=== PATIENT | female | born 1940 | race Caucasian/White ===

== ENCOUNTER 2016-06-01 10:59 | Outpatient (CLI) | payer MEDICARE, OTHER | END 2016-06-01 11:00 | disposition home or self-care (01) | DX: Z12.31 Encounter for screening mammogram for malignant neoplasm of breast (principal) ==

== ENCOUNTER 2016-06-03 15:30 | Outpatient (CLI) | END 2016-06-03 15:31 | disposition home or self-care (01) ==

== ENCOUNTER 2016-06-14 08:40 | Outpatient (CLI) | payer MEDICARE, OTHER | END 2016-06-14 08:41 | disposition home or self-care (01) | DX: R30.0 Dysuria (principal) ==

== ENCOUNTER 2016-06-22 14:42 | Outpatient (CLI) | payer MEDICARE, OTHER | END 2016-06-22 14:43 | disposition home or self-care (01) | DX: R31.9 Hematuria, unspecified (principal) ==

== ENCOUNTER 2016-12-28 09:00 | Outpatient (CLI) | payer MEDICARE, OTHER ==
[2016-12-28 13:17] LABS: BASOPHILS % (AUTO) 0.5 %; EOSINOPHILS # (AUTO) 0.1 10^3/uL (0.0-0.7); EOSINOPHILS % (AUTO) 1.3 %; HCT - HEMATOCRIT 40.7 % (37.0-47.0); HGB - HEMOGLOBIN 13.5 g/dL (12.0-16.0); LYMPHOCYTES # (AUTO) 2.5 10^3/uL (1.5-3.5); LYMPHOCYTES % (AUTO) 34.9 %; MEAN CORPUSCULAR HEMOGLOBIN 28.8 pg (27.0-31.0); MEAN CORPUSCULAR HGB CONC 33.2 g/dL (32.0-36.0); MEAN CORPUSCULAR VOLUME 86.9 fL (81.0-99.0); MONOCYTES # (AUTO) 0.4 10^3/uL (0.0-1.0); MONOCYTES % (AUTO) 6.1 %; NEUTROPHILS # (AUTO) 4.1 10^3/uL (1.5-6.6); NEUTROPHILS % (AUTO) 57.2 %; NUCLEATED RED BLOOD CELLS AUTO 0.1 /100WBC; RED BLOOD COUNT 4.69 10^6/uL (4.20-5.40); RED CELL DISTRIBUTION WIDTH 13.3 % (12.0-15.0); UNCORRECTED WHITE BLOOD COUNT 7.1 x10^3/uL; WHITE BLOOD COUNT 7.1 x10^3/uL (4.8-10.8)
[2016-12-28 13:26] LABS: H. PYLORI IGG ANTIBODY Negative (Negative); HPYLORI NEG QC Negative (Negative); HPYLORI POS QC POSITIVE (Positive)
[2016-12-28 13:39] LABS: ALBUMIN/GLOBULIN RATIO 1.5 (1.0-2.2); BILIRUBIN,TOTAL 0.9 mg/dL (0.2-1.0); CALCIUM 9.6 mg/dL (8.5-10.3); CREATININE 0.9 mg/dL (0.4-1.0); POTASSIUM 3.7 mmol/L (3.5-5.0); TOTAL PROTEIN 7.2 g/dL (6.7-8.2)
== END 2016-12-28 09:01 | disposition home or self-care (01) ==
LOC: LAB.WCP 09:00
PROVIDERS: ATTEND Physician Assistant Medical
DX: R10.13 Epigastric pain (principal)
CPT/HCPCS: 36415; 80053; 83690; 85025; 87086; 87339

== ENCOUNTER 2017-01-03 10:08 | Outpatient (CLI) | payer MEDICARE, OTHER ==
[2017-01-03] MEDS ORDERED: IOPAMIDOL-300 100 ML VIAL IVP ONE (12:35)
[2017-01-03] MEDS ORDERED: IOPAMIDOL-300 50 ML VIAL PO ONE (12:35)
--- NOTE | 2017-01-03 16:13 | CT Report ---
CT OF THE ABDOMEN AND PELVIS WITH CONTRAST: 01/03/2017 CLINICAL INDICATION: Epigastric pain. TECHNIQUE: Axial CT images of the abdomen and pelvis were obtained following 100 mL of Isovue-300 int ravenously as well as oral contrast. COMPARISON: 07/11/2014. FINDINGS: Limited evaluation of the lung bases demonstrates atelectasis. ABDOMEN: There is a stable cyst in the right lobe of the liver. The spleen, pancreas, kidneys and adr enal glands are unremarkable. The gallbladder is not dilated. No bowel dilatation, free gas, or free fluid is present. No abdominal adenopathy is seen. PELVIS: Sigmoid diverticulosis is present, without CT evidence of diverticulitis. No pelvic adenopath y or free fluid is present. The osseous structures demonstrate degenerative changes. IMPRESSION: DIVERTICULOSIS, WITHOUT CT EVIDENCE OF DIVERTICULITIS. INCIDENTAL HEPATIC CYST. NO EVIDE NT ETIOLOGY FOR PATIENT'S EPIGASTRIC PAIN. In accordance with CT protocol optimization, one or more of the following dose reduction techniques w ere utilized for this exam: automated exposure control, adjustment of mA and/or KV based on patient size, or use of iterative reconstructive technique. JOB #: [id number] EXT JOB #:[id number]
== END 2017-01-03 10:09 | disposition home or self-care (01) ==
LOC: LAB 10:08
PROVIDERS: ATTEND Physician Assistant Medical
DX: R10.13 Epigastric pain (principal); K57.30 Diverticulosis of large intestine without perforation or abscess without bleeding
CPT/HCPCS: 74177; Q9967

== ENCOUNTER 2017-01-24 09:45 | Outpatient (CLI) | payer MEDICARE, OTHER | END 2017-01-24 09:46 | disposition home or self-care (01) | LOC: LAB.WCP 09:45 | PROVIDERS: ATTEND Physician Assistant Medical | DX: R31.9 Hematuria, unspecified (principal) | CPT/HCPCS: 87086 ==

== ENCOUNTER 2018-04-21 13:11 | Outpatient (CLI) | payer MEDICARE, OTHER | END 2018-04-21 13:12 | disposition critical access hospital (66) | LOC: EMS 13:11 | PROVIDERS: ATTEND Surgery | DX: R42 Dizziness and giddiness (principal); R53.1 Weakness | CPT/HCPCS: A0425; A0429 ==

== ENCOUNTER 2018-04-21 13:37 | Emergency (ER) | payer MEDICARE, OTHER ==
[2018-04-21 14:27] LABS: BILIRUBIN,URINE NEGATIVE (NEGATIVE); GLUCOSE, URINE (UA) NEGATIVE (NEGATIVE); KETONES,URINE (UA) NEGATIVE (NEGATIVE); LEUKOCYTE ESTERASE, URINE SMALL (NEGATIVE); NITRITE,URINE NEGATIVE (NEGATIVE); OCCULT BLOOD,URINE NEGATIVE (NEGATIVE); PROTEIN,URINE NEGATIVE (NEGATIVE); UROBILINOGEN,URINE 0.2 (NORMAL) E.U./dL (NORMAL)
[2018-04-21 14:29] LABS: CLARITY,URINE CLEAR (CLEAR)
[2018-04-21 14:42] LABS: BACTERIA,URINE Rare /HPF (None Seen); RBC,URINE 0-5 /HPF (0-5); SQUAMOUS EPITHELIAL CELL,UR RARE Squamous (<= Few)
[2018-04-21 14:44] LABS: BASOPHILS # (AUTO) 0.1 10^3/uL (0.0-0.1); BASOPHILS % (AUTO) 0.5 %; EOSINOPHILS # (AUTO) 0.2 10^3/uL (0.0-0.7); EOSINOPHILS % (AUTO) 1.4 %; HGB - HEMOGLOBIN 13.4 g/dL (12.0-16.0); LYMPHOCYTES # (AUTO) 1.8 10^3/uL (1.5-3.5); LYMPHOCYTES % (AUTO) 15.4 %; MEAN CORPUSCULAR HEMOGLOBIN 29.4 pg (27.0-31.0); MEAN CORPUSCULAR HGB CONC 33.9 g/dL (32.0-36.0); MEAN CORPUSCULAR VOLUME 86.8 fL (81.0-99.0); MEAN PLATELET VOLUME 9.3 fL (7.9-10.8); MONOCYTES # (AUTO) 0.5 10^3/uL (0.0-1.0); MONOCYTES % (AUTO) 4.8 %; NEUTROPHILS # (AUTO) 8.8 10^3/uL (1.5-6.6); NEUTROPHILS % (AUTO) 77.9 %; PLT - PLATELET COUNT 250 10^3/uL (130-450); RED BLOOD COUNT 4.54 10^6/uL (4.20-5.40); RED CELL DISTRIBUTION WIDTH 13.2 % (12.0-15.0); WHITE BLOOD COUNT 11.3 x10^3/uL (4.8-10.8)
[2018-04-21 14:53] LABS: ALBUMIN 4.5 g/dL (3.2-5.5); ALBUMIN/GLOBULIN RATIO 1.6 (1.0-2.2); BILIRUBIN,TOTAL 0.8 mg/dL (0.2-1.0); CALCIUM 9.4 mg/dL (8.5-10.3); CREATININE 1.7 mg/dL (0.4-1.0); TOTAL PROTEIN 7.4 g/dL (6.7-8.2)
[2018-04-21] MEDS ORDERED: POTASSIUM CHLOR 10 MEQ/100 ML 10 MEQ/100 ML BAG IV ONE (15:46)
[2018-04-21] MEDS ORDERED: NITROFURANTOIN MACRO 100 MG CAPSULE PO STA (15:46)
[2018-04-21 17:15] VITALS: BP 117/56
--- NOTE | 2018-04-21 17:51 | ED Physician Documentation ---
History of Present Illness - Stated complaint Stated Complaint: WEAK - Chief complaint Chief Complaint: General - History obtained from History obtained from: Patient, Family (daughter) - Additonal information Additional information: The patient is a 77-year-old female with history of dementia who arrives via ambulance after her daughter became concerned about generalized weakness. The patient has no complaints at this time, and is uncertain why she was brought to the emergency department. Her daughter reports that she sounded drowsy when talking on the phone this morning. When the daughter went to check on her, the patient was so weak she could barely get up from the couch. Review of Systems Unable to obtain: Dementia Constitutional: denies: Fever Cardiac: denies: Chest pain / pressure Respiratory: denies: Dyspnea GI: denies: Abdominal Pain, Nausea, Vomiting : denies: Dysuria Skin: denies: Rash Musculoskeletal: denies: Neck pain, Back pain, Extremity pain Neurologic: reports: Generalized weakness. denies: Focal weakness, Numbness, Headache PD PAST MEDICAL HISTORY - Past Medical History Past Medical History: No Cardiovascular: Hypertension Respiratory: None Neuro: Dementia Endocrine/Autoimmune: None GI: None TECHNICAL SALES SUPPORT SPECIALIST: None : None HEENT: None Psych: None Musculoskeletal: None Derm: None - Past Surgical History Past Surgical History: Yes /TECHNICAL SALES SUPPORT SPECIALIST: section, Hysterectomy - Present Medications Home Medications: Ambulatory Orders Medication Instructions Recorded Confirmed Nitrofurantoin [Macrobid] 100 mg PO BID #10 capsule 04/21/18 Potassium Chloride [K-Dur] 20 meq PO 0800 #20 tablet 04/21/18 Triamterene/Hydrochlorothiazid 1 tab ORAL DAILY 04/21/18 04/21/18 [Maxzide 37.5 mg-25 mg Tablet] - Allergies Allergies/Adverse Reactions: Allergies Allergy/AdvReac Type Severity Reaction Status Date / Time No Known Drug Allergies Allergy Verified 04/01/16 10:42 - Social History Does the pt smoke?: No Smoking Status: Never smoker Does the pt drink ETOH?: No Does the pt have substance abuse?: No - Immunizations Immunizations are current?: Yes - POLST Patient has POLST: No PD ED PE NORMAL - Vitals Vital signs reviewed: Yes (normal) - General General: No acute distress, Well developed/nourished, Other (Alert, disoriented to date, conversant, but with poor memory.) - HEENT HEENT: Atraumatic, EOMI, Moist mucous membranes, Pharynx benign - Neck Neck: Supple, no meningeal sign, No adenopathy, No JVD - Cardiac Cardiac: RRR - Respiratory Respiratory: No respiratory distress, Clear bilaterally - Abdomen Abdomen: Soft, Non tender - Back Back: No CVA TTP - Derm Derm: No rash - Extremities Extremities: No edema, No calf tenderness / cord - Neuro Neuro: No motor deficit, No sensory deficit, Normal speech, Other (Alert, oriented 2.) Eye Opening: Spontaneous Motor: Obeys Commands Verbal: Confused GCS Score: 14 Results - Vitals Vitals: Oxygen O2 Source Room air - Labs Labs: Microbiology 04/21/18 14:23 Urine Culture - Final Urine,Random Viridans Streptococcus Group Laboratory Tests 04/21/18 04/21/18 04/21/18 14:23 14:29 14:29 WBC 11.3 H RBC 4.54 Hgb 13.4 Hct 39.4 MCV 86.8 MCH 29.4 MCHC 33.9 RDW 13.2 Plt Count 250 MPV 9.3 Neut # (Auto) 8.8 H Lymph # (Auto) 1.8 Caroline # (Auto) 0.5 Eos # (Auto) 0.2 Baso # (Auto) 0.1 Absolute Nucleated RBC 0.00 Nucleated RBC % 0.0 Sodium 138 Potassium 2.9 L Chloride 101 Carbon Dioxide 28 Anion Gap 9.0 BUN 29 H Creatinine 1.7 H Estimated GFR (MDRD) 29 L Glucose 105 H Calcium 9.4 Total Bilirubin 0.8 AST 29 ALT 29 Alkaline Phosphatase 61 Total Protein 7.4 Albumin 4.5 Globulin 2.9 Albumin/Globulin Ratio 1.6 Lipase 58 H Urine Color YELLOW Urine Clarity CLEAR Urine pH 6.0 Ur Specific [place] 1.015 Urine Protein NEGATIVE Urine Glucose (UA) NEGATIVE Urine Ketones NEGATIVE Urine Occult Blood NEGATIVE Urine Nitrite NEGATIVE Urine Bilirubin NEGATIVE Urine Urobilinogen 0.2 (NORMAL) Ur Leukocyte Esterase SMALL H Urine RBC 0-5 Urine WBC 4-5 Ur Squamous Epith Cells RARE Squamous Urine Bacteria Rare Ur Microscopic Review INDICATED Urine Culture Comments INDICATED PD MEDICAL DECISION MAKING - ED course Complexity details: reviewed old records, reviewed results, re-evaluated patient, considered differential, d/w patient, d/w family ED course: The patient's presentation is most consistent with a tract infection and hypokalemia, both of which can result in generalized weakness. There is no clinical evidence to suggest sepsis or pyelonephritis. I suspect her hypokalemia is due to the diuretic medication she is taking. Treatment in the emergency department included administration of nitrofurantoin 100 mg orally and supplemental potassium, 20 mEq orally. She is being discharged with prescriptions for both. I discussed with her and her daughter the diagnosis, outpatient treatment and follow-up, as well as potentially worrisome signs or symptoms that should prompt reevaluation in the emergency department. Departure - Departure Disposition: 01 Home, Self Care Clinical Impression: Hypokalemia Urinary tract infection Qualifiers: Urinary tract infection type: acute cystitis Hematuria presence: without hematuria Qualified Code(s): N30.00 - Acute cystitis without hematuria Condition: Stable Instructions: ED Potassium Deficiency, ED UTI Cystitis Female Follow-Up: Cristina Mike PA-C [Primary Care Provider] - Prescriptions: Nitrofurantoin [Macrobid] 100 mg PO BID #10 capsule Potassium Chloride [K-Dur] 20 meq PO 0800 #20 tablet Comments: Drink plenty of fluids, including cranberry juice. Take nitrofurantoin twice daily as prescribed. Take potassium daily as prescribed. Follow-up with your primary physician within 2 weeks. Call to schedule appointment. Return to the emergency department if you develop increasing abdominal pain, fever with shaking chills, persistent vomiting, or otherwise worsening symptoms. Discharge Date/Time: 04/21/18 18:23
== END 2018-04-21 18:23 | disposition home or self-care (01) ==
LOC: EDUNIT# → ED 13:37
DX: E87.6 Hypokalemia (principal); N30.00 Acute cystitis without hematuria; F03.90 Unspecified dementia, unspecified severity, without behavioral disturbance, psychotic disturbance, mood disturbance, and anxiety; I10 Essential (primary) hypertension
CPT/HCPCS: 36415; 80053; 81001; 83690; 85025; 87086; 96365; 99283; A9270; 81003

== ENCOUNTER 2018-08-04 08:54 | Outpatient (CLI) | payer MEDICARE, OTHER ==
--- NOTE | 2018-08-04 10:43 | XRAY Report ---
Reason: FINGER PAIN, LEFT Procedure Date: 08/04/2018 Accession Number: [id number] / [id number] Procedure: WCP - Finger(s) LT CPT Code: FULL RESULT: EXAM: LEFT SECOND DIGIT RADIOGRAPHY EXAM DATE: 08/04/2018 09:07 AM. CLINICAL HISTORY: Finger pain, left. COMPARISON: None. TECHNIQUE: 3 views. FINDINGS: Bones: Normal. No fracture or bone lesion. Joints: Advanced joint space narrowing of the interphalangeal joints, distal rather than proximal, pattern generally associated with osteoarthrosis. Soft Tissues: Normal. No soft tissue swelling. IMPRESSION: Degenerative changes of the interphalangeal joints with no trauma detected. RADIA
== END 2018-08-04 08:55 | disposition home or self-care (01) ==
LOC: DI.WCP 08:54
PROVIDERS: ATTEND Nurse Practitioner
DX: M19.042 Primary osteoarthritis, left hand (principal)
CPT/HCPCS: 73140

== ENCOUNTER 2019-07-12 14:50 | Outpatient (CLI) | payer MEDICARE, OTHER ==
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
== END 2019-07-12 14:51 | disposition home or self-care (01) ==
LOC: PC 14:50
PROVIDERS: ATTEND Nurse Practitioner Family
DX: Z51.5 Encounter for palliative care (principal); G30.9 Alzheimer's disease, unspecified; F02.80 Dementia in other diseases classified elsewhere, unspecified severity, without behavioral disturbance, psychotic disturbance, mood disturbance, and anxiety; I10 Essential (primary) hypertension; L29.9 Pruritus, unspecified; Z79.899 Other long term (current) drug therapy
CPT/HCPCS: 99345

== ENCOUNTER 2019-08-10 00:24 | Outpatient (CLI) | payer MEDICARE, OTHER | END 2019-08-10 00:25 | disposition EMS.NT | LOC: EMS 00:24 | PROVIDERS: ATTEND Surgery | DX: R03.0 Elevated blood-pressure reading, without diagnosis of hypertension (principal) ==

== ENCOUNTER 2019-08-13 08:00 | Outpatient (CLI) | payer MEDICARE, OTHER | END 2019-08-13 23:59 | disposition home or self-care (01) | LOC: LAB.R 08:00 | PROVIDERS: ATTEND Physician Assistant Medical | DX: R31.9 Hematuria, unspecified (principal); R41.0 Disorientation, unspecified | CPT/HCPCS: 81002; 87086 ==

== ENCOUNTER 2022-05-08 09:37 | Emergency (ER) | payer MEDICARE, OTHER ==
[2022-05-08] MEDS ORDERED: SODIUM CHLORIDE 0.9% 1,000 ML IV STA (11:06)
--- NOTE | 2022-05-08 11:09 | ED Physician Documentation ---
PD HPI ALTERED MENTAL STATUS - Stated complaint Stated Complaint: NOT FEELING GOOD - Chief complaint Chief Complaint: General - History obtained from History obtained from: Patient (poor historian with advanced dementia), Family, EMS - History of Present Illness Timing - onset: How many days ago (2) Timing - duration: Days (2) Timing - details: Gradual onset, Still present Quality / character: Less responsive, Confused Associated symptoms: General weakness. No: Fever, Headache, Stiff neck, Dyspnea, Cough, NVD, Urinary sx, Focal weakness, Seizure activity Contributing factors: Known dementia. No: Anticoagulated Basline status: Ambulatory, Disoriented Similar symptoms before: Diagnosis (UTI) Recently seen: Not recently seen - Additional information Additional information: 81-year-old Sarah Azul has a history of advanced dementia and she is a resident of [facility]. She is here today because of diminished alertness. She is noted over the past 2 days by the staff and by the patient's daughter to be less interactive. Staff has been encouraging oral fluid intake. The patient does not have a drive for fluids. Review of Systems Constitutional: denies: Fever Eyes: denies: Decreased vision Ears: denies: Ear pain Nose: denies: Congestion Throat: denies: Sore throat Cardiac: denies: Chest pain / pressure Respiratory: denies: Dyspnea, Cough GI: reports: Nausea (once yesterday). denies: Abdominal Pain, Vomiting Skin: denies: Rash Musculoskeletal: reports: Extremity pain (right leg might hurt and the left arm might hurt). denies: Neck pain, Back pain Neurologic: reports: Generalized weakness, Altered mental status, Other (decreased alertness). denies: Focal weakness, Numbness PD PAST MEDICAL HISTORY - Past Medical History Cardiovascular: Hypertension Respiratory: None Neuro: Alzhiemer's, Dementia Endocrine/Autoimmune: None GI: None FINANCIAL SERVICES SPECIALIST: None : None HEENT: None Psych: None Musculoskeletal: Osteoarthritis Derm: Other (Basal cell carcinoma 2019) - Past Surgical History Past Surgical History: Yes General: Other (Tonsillectomy) /FINANCIAL SERVICES SPECIALIST: section, Hysterectomy HEENT: Cataracts - Present Medications Home Medications: Ambulatory Orders Medication Instructions Recorded Confirmed Triamterene/Hydrochlorothiazid 1 tab ORAL DAILY 04/21/18 04/21/18 [Maxzide 37.5 mg-25 mg Tablet] Cetirizine [ZyrTEC] 10 mg PO DAILY PRN 07/13/19 07/13/19 Diclofenac Sodium 2 - 4 g TP QID PRN 07/13/19 07/13/19 - Allergies Allergies/Adverse Reactions: Allergies Allergy/AdvReac Type Severity Reaction Status Date / Time donepezil [From Aricept] Allergy Dizziness Verified 06/07/18 13:31 - Social History Does the pt smoke?: No Smoking Status: Never smoker Does the pt drink ETOH?: No Does the pt have substance abuse?: No - Immunizations Immunizations are current?: Yes - POLST Patient has POLST: No PD ED PE NORMAL - Vitals Vital signs reviewed: Yes (normal ) - General General: No acute distress, Well developed/nourished, Other (delay in execution of motor commands and speech latency ) - HEENT HEENT: Atraumatic, PERRL, EOMI - Neck Neck: Supple, no meningeal sign, No bony TTP - Cardiac Cardiac: RRR, No murmur - Respiratory Respiratory: No respiratory distress, Clear bilaterally - Abdomen Abdomen: Soft, Non tender - Back Back: No CVA TTP, No spinal TTP - Derm Derm: Normal color, Warm and dry, No rash - Extremities Extremities: No deformity, No edema - Neuro Neuro: stripper latex 2-12 intact, No motor deficit, No sensory deficit Eye Opening: Spontaneous Motor: Obeys Commands Verbal: Confused GCS Score: 14 - Psych Psych: Normal mood, Normal affect Results - Vitals Vitals: Vital Signs - 24 hr 05/08/22 05/08/22 05/08/22 09:56 12:19 14:09 Temperature 37.2 C Heart Rate 68 71 69 Respiratory 18 17 20 Rate Blood Pressure 98/71 135/63 H 158/73 H O2 Saturation 99 100 100 Oxygen O2 Source Room air - Labs Labs: Laboratory Tests 05/08/22 05/08/22 05/08/22 11:15 11:15 11:36 WBC 8.5 RBC 4.30 Hgb 12.4 Hct 39.0 MCV 90.7 MCH 28.8 MCHC 31.8 L RDW 12.7 Plt Count 169 MPV 11.2 H Neut # (Auto) 6.9 H Lymph # (Auto) 1.0 L [place] # (Auto) 0.5 Eos # (Auto) 0.1 Baso # (Auto) 0.0 Absolute Nucleated RBC 0.00 Nucleated RBC % 0.0 Sodium 139 Potassium 4.0 Chloride 108 Carbon Dioxide 26 Anion Gap 5.0 L BUN 26 H Creatinine 0.8 Estimated GFR (MDRD) 69 L Glucose 156 H Calcium 9.3 Total Bilirubin 0.4 AST 16 ALT 15 Alkaline Phosphatase 63 Total Protein 6.1 L Albumin 3.7 Globulin 2.4 Albumin/Globulin Ratio 1.5 Lipase 51 Urine Color YELLOW Urine Clarity CLEAR Urine pH 6.5 Ur Specific [place] 1.015 Urine Protein NEGATIVE Urine Glucose (UA) NEGATIVE Urine Ketones NEGATIVE Urine Occult Blood NEGATIVE Urine Nitrite NEGATIVE Urine Bilirubin NEGATIVE Urine Urobilinogen 0.2 (NORMAL) Ur Leukocyte Esterase NEGATIVE Ur Microscopic Review NOT INDICATED Urine Culture Comments NOT INDICATED Procedures - IVC sono (time) 1100 Bedside IVC sono: IVC measures (cm) (0.72), IVC collapsed c insp (cm) (complete), Profound dehydration (close to desication encephalopathy) PD MEDICAL DECISION MAKING - ED course Complexity details: considered differential, d/w patient, d/w family ED course: 81-year-old Sarah Azul has advanced dementia and today she has had a decreased alertness. I have evaluated the patient at the bedside and with POCUS we are able to determine that she was significantly dehydrated right at the level of desiccation encephalopathy. The patient responded well to intravenous fluids administered there was no evidence of urinary tract infection no elevation of the white blood cell count and only a small elevation in BUN consistent with her level of dehydration. The patient has advanced dementia and has lost her drive for water. She will require frequent reminders for fluids. Departure - Departure Disposition: 01 Home, Self Care Clinical Impression: Dehydration Condition: Stable Instructions: ED Dehydration Follow-Up: Cristina Mike PA-C [Primary Care Provider] - Comments: Today it appears Sarah was significantly dehydrated and this led to her decreased alertness. We did not find evidence of urinary tract infection the white blood cell count was not elevated and her electrolytes were normal. We provided saline as a hydration and this works well. Sarah will need assistance for intake of oral fluids. Her normal mechanism for thirst is not working.
[2022-05-08 11:34] LABS: BASOPHILS % (AUTO) 0.5 %; EOSINOPHILS # (AUTO) 0.1 10^3/uL (0.0-0.7); EOSINOPHILS % (AUTO) 0.6 %; HGB - HEMOGLOBIN 12.4 g/dL (12.0-16.0); LYMPHOCYTES % (AUTO) 11.3 %; MEAN CORPUSCULAR HEMOGLOBIN 28.8 pg (27.0-31.0); MEAN CORPUSCULAR HGB CONC 31.8 g/dL (32.0-36.0); MEAN CORPUSCULAR VOLUME 90.7 fL (81.0-99.0); MEAN PLATELET VOLUME 11.2 fL (7.9-10.8); MONOCYTES # (AUTO) 0.5 10^3/uL (0.0-1.0); MONOCYTES % (AUTO) 6.3 %; NEUTROPHILS # (AUTO) 6.9 10^3/uL (1.5-6.6); NEUTROPHILS % (AUTO) 81.1 %; PLT - PLATELET COUNT 169 10^3/uL (130-450); RED CELL DISTRIBUTION WIDTH 12.7 % (12.0-15.0); WHITE BLOOD COUNT 8.5 x10^3/uL (4.8-10.8)
[2022-05-08 11:48] LABS: BILIRUBIN,URINE NEGATIVE (NEGATIVE); GLUCOSE, URINE (UA) NEGATIVE (NEGATIVE); KETONES,URINE (UA) NEGATIVE (NEGATIVE); LEUKOCYTE ESTERASE, URINE NEGATIVE (NEGATIVE); NITRITE,URINE NEGATIVE (NEGATIVE); OCCULT BLOOD,URINE NEGATIVE (NEGATIVE); PH,URINE 6.5 PH (5.0-7.5); PROTEIN,URINE NEGATIVE (NEGATIVE); UROBILINOGEN,URINE 0.2 (NORMAL) E.U./dL (NORMAL)
[2022-05-08 11:48] LABS: ALBUMIN 3.7 g/dL (3.2-5.5); ALBUMIN/GLOBULIN RATIO 1.5 (1.0-2.2); BILIRUBIN,TOTAL 0.4 mg/dL (0.2-1.0); CALCIUM 9.3 mg/dL (8.5-10.3); CREATININE 0.8 mg/dL (0.4-1.0); TOTAL PROTEIN 6.1 g/dL (6.7-8.2)
[2022-05-08 11:50] LABS: CLARITY,URINE CLEAR (CLEAR)
[2022-05-08 15:00] VITALS: BP 121/51
== END 2022-05-08 15:00 | disposition home or self-care (01) ==
LOC: EDUNIT# → ED 09:37
DX: E86.0 Dehydration (principal); F03.90 Unspecified dementia, unspecified severity, without behavioral disturbance, psychotic disturbance, mood disturbance, and anxiety
CPT/HCPCS: 36415; 80053; 81001; 81003; 83690; 85025; 87086; 96360; 99282

== ENCOUNTER → 2022-05-08 | Outpatient (CLI) | payer MEDICARE, OTHER | END | disposition critical access hospital (66) | LOC: EMS 09:25 | DX: R41.82 Altered mental status, unspecified (principal) | CPT/HCPCS: A0425; A0429 ==

== ENCOUNTER 2022-06-15 13:47 | Outpatient (CLI) | payer MEDICARE, OTHER ==
[2022-06-15 14:08] LABS: BASOPHILS % (AUTO) 0.4 %; EOSINOPHILS # (AUTO) 0.2 10^3/uL (0.0-0.7); EOSINOPHILS % (AUTO) 2.7 %; HCT - HEMATOCRIT 41.9 % (37.0-47.0); HGB - HEMOGLOBIN 12.8 g/dL (12.0-16.0); LYMPHOCYTES % (AUTO) 29.5 %; MEAN CORPUSCULAR HEMOGLOBIN 28.7 pg (27.0-31.0); MEAN CORPUSCULAR HGB CONC 30.5 g/dL (32.0-36.0); MEAN CORPUSCULAR VOLUME 93.9 fL (81.0-99.0); MEAN PLATELET VOLUME 10.9 fL (7.9-10.8); MONOCYTES # (AUTO) 0.4 10^3/uL (0.0-1.0); MONOCYTES % (AUTO) 6.6 %; NEUTROPHILS % (AUTO) 60.7 %; PLT - PLATELET COUNT 186 10^3/uL (130-450); RED BLOOD COUNT 4.46 10^6/uL (4.20-5.40); RED CELL DISTRIBUTION WIDTH 12.5 % (12.0-15.0); WHITE BLOOD COUNT 6.7 x10^3/uL (4.8-10.8)
[2022-06-15 14:47] LABS: ALBUMIN 3.6 g/dL (3.2-5.5); ALBUMIN/GLOBULIN RATIO 1.2 (1.0-2.2); ALKALINE PHOSPHATASE 60 IU/L (42-121); ALT ALANINE AMINOTRANSFERASE 18 IU/L (10-60); AST ASPARTATE AMINOTRANSFERASE 16 IU/L (10-42); BILIRUBIN,TOTAL 0.4 mg/dL (0.2-1.0); BUN - BLOOD UREA NITROGEN 18 mg/dL (6-20); CALCIUM 9.3 mg/dL (8.5-10.3); CARBON DIOXIDE - CO2 27 mmol/L (21-32); CHLORIDE 105 mmol/L (101-111); CHOL/HDL RATIO 2.9 (<4.4); CHOLESTEROL 186 mg/dL; CREATININE 0.8 mg/dL (0.4-1.0); GFR - MDRD 69 (>89); GLUCOSE 130 mg/dL (70-100); HDL CHOLESTEROL 64 mg/dL; LDL CHOLESTEROL,CALCULATED 99 mg/dL; LDL/HDL RATIO 1.5 (<4.4); POTASSIUM 4.4 mmol/L (3.5-5.0); SODIUM 140 mmol/L (135-145); TOTAL PROTEIN 6.6 g/dL (6.7-8.2); TRIGLYCERIDES 117 mg/dL; VLDL CHOLESTEROL 23 mg/dL
== END 2022-06-15 13:48 | disposition home or self-care (01) ==
LOC: LAB 13:47
PROVIDERS: ATTEND Nurse Practitioner Gerontology
DX: Z00.00 Encounter for general adult medical examination without abnormal findings (principal); F03.90 Unspecified dementia, unspecified severity, without behavioral disturbance, psychotic disturbance, mood disturbance, and anxiety; R55 Syncope and collapse; Z13.9 Encounter for screening, unspecified; G47.9 Sleep disorder, unspecified
CPT/HCPCS: 36415; 80053; 80061; 83721; 84443; 85025

== ENCOUNTER 2022-12-06 20:27 | Emergency (ER) | payer MEDICARE, OTHER ==
--- NOTE | 2022-12-06 20:37 | ED Physician Documentation ---
PD HPI MAJOR TRAUMA - Stated complaint Stated Complaint: GLF - Chief complaint Chief Complaint: Ext Problem - History obtained from History obtained from: Patient, EMS - Additional information Additional information: 82-year-old woman with dementia presents by ambulance from adult family home. She had an unwitnessed fall with an injury of the right shoulder. Seems to be an isolated injury but the patient is a poor historian for the actual incident which as per EMS her baseline. No clear head injury or other injuries. PD PAST MEDICAL HISTORY - Past Medical History Cardiovascular: Hypertension Respiratory: None Neuro: Alzhiemer's, Dementia Endocrine/Autoimmune: None GI: None LIFE SKILLS COORDINATOR: None : None HEENT: None Psych: None Musculoskeletal: Osteoarthritis Derm: Other (Basal cell carcinoma 2019) - Past Surgical History Past Surgical History: Yes General: Other (Tonsillectomy) /LIFE SKILLS COORDINATOR: section, Hysterectomy HEENT: Cataracts - Present Medications Home Medications: Ambulatory Orders Medication Instructions Recorded Confirmed Triamterene/Hydrochlorothiazid 1 tab ORAL DAILY 04/21/18 04/21/18 [Maxzide 37.5 mg-25 mg Tablet] Cetirizine [ZyrTEC] 10 mg PO DAILY PRN 07/13/19 07/13/19 Diclofenac Sodium 2 - 4 g TP QID PRN 07/13/19 07/13/19 HYDROcod/ACETAM 5/325 [[place] 5/325] 1 - 2 tab PO Q6H PRN #15 tablet 12/06/22 - Allergies Allergies/Adverse Reactions: Allergies Allergy/AdvReac Type Severity Reaction Status Date / Time donepezil [From Aricept] Allergy Dizziness Verified 06/07/18 13:31 - Social History Does the pt smoke?: No Smoking Status: Never smoker Does the pt drink ETOH?: No Does the pt have substance abuse?: No - Immunizations Immunizations are current?: Yes - POLST Patient has POLST: No PD ED PE NORMAL - Vitals Vital signs reviewed: Yes - General General: Other (She is alert and oriented to person and place but not time or events.) - HEENT HEENT: PERRL, EOMI - Neck Neck: Supple, no meningeal sign, No bony TTP - Cardiac Cardiac: RRR, No murmur - Respiratory Respiratory: No respiratory distress, Clear bilaterally - Abdomen Abdomen: Normal bowel sounds, Soft, Non tender - Extremities Extremities: Other (She is guarding the right shoulder and tender about the upper humerus. She cannot range it at all. Normal neurovascular function in the hand.) - Neuro Eye Opening: Spontaneous Motor: Obeys Commands Verbal: Confused GCS Score: 14 - Psych Psych: Normal mood, Normal affect Results - Vitals Vitals: Vital Signs - 24 hr 12/06/22 20:31 Temperature 36.7 C Heart Rate 57 L Respiratory 18 Rate Blood Pressure 143/108 H O2 Saturation 100 Oxygen O2 Source Room air - Rads (name of study) Right humeral x-ray shows mildly comminuted fracture of the humeral head neck Relevant Findings:: Final report received, EMP independent interpretation of test PD Medical Decision Making - ED course ED course: 82-year-old with dementia with a ground-level fall injuring the right shoulder. No clear head injury. I spoke with the daughter, Mary Macias shortly after initial evaluation and we discussed whether they would want further imaging such as head or neck CT. She states they would not act on results and declined that testing. I will call her back after x-rays are complete. I called her back after completion of the x-rays and she understands the diagnosis, generally conservative management but need to follow-up with orthopedics. Departure - Departure Disposition: 01 Home, Self Care Clinical Impression: Proximal humeral fracture Qualifiers: Encounter type: initial encounter Fracture type: closed Fracture morphology: other fracture Fracture alignment: displaced Laterality: right Qualified Code(s): S42.291A - Other displaced fracture of upper end of right humerus, initial encounter for closed fracture Condition: Good Record reviewed to determine appropriate education?: Yes Instructions: ED Fx Upper Ext Follow-Up: Orthopedic Care [Provider Group] Prescriptions: HYDROcod/ACETAM 5/325 [[place] 5/325] 1 - 2 tab PO Q6H PRN #15 tablet PRN Reason: Pain Comments: Sarah was seen tonight and has a proximal humeral fracture. As a general of these are treated conservatively with just a sling and physical therapy. She should follow-up with the orthopedic surgeons within the week for further evaluation and treatment, calling tomorrow for an appointment. I did send a prescription for some narcotic pain killers to the [facility] in [place] which can be picked up tomorrow and 4 pills to go home with her for tonight. When p ain is mild she can just take Tylenol, 650 or 1000 mg every 6 hours for pain. Her daughter is aware of the injuries and need for follow-up. I am prescribing a short course of narcotic pain medication for you. These are potentially dangerous and addictive medications that should be used carefully. These medications may constipate you. Take an [id number]-dxrsphz stool softener (docusate) twice daily with plenty of water while taking these medications. If you go 24 hours without a bowel movement, take pirl-sdc-aruvtsy miralax, per package instructions. Do not drink or drive while taking these medications. If you received narcotic or sedating medications while in the emergency department, do not drive for 24 hours. Store this medication in a safe, secure place and out of reach of children. It is a violation of federal law to give or sell this medication to another person or to use in a manner other than prescribed. The ED will not refill narcotic prescriptions, including prescriptions lost or stolen. To dispose of unwanted medications: 1. [facility] provides a drop box for medication in pill form only (no liquids) 8:00 am to 4:30 p.m. Tuesday-Tuesday in the lobby of the [facility], [address] [place] [address]. Empty pills into ziplock bag before disposal. Call [phone] for information. 2.[employer] is a free service available to all [facility] residents. Go to [email or web address] Note that many narcotic pain relievers also contain Tylenol/acetaminophen. Please ensure that your total dose of acetaminophen from all sources does not exceed 3 g (3000 mg) per day. Discharge Date/Time: 12/06/22 22:21
[2022-12-06 20:38] VITALS: BP 143/108
[2022-12-06] MEDS: HYDROmorphone 1 MG/ML CARPUJECT IVP STA ×2 (20:45→22:11)
[2022-12-06] MEDS: KETOROLAC 15 MG/ML VIAL IVP STA (20:47)
[2022-12-06] MEDS: HYDROcod/ACET 5/325 Prepack 4 PO STA (22:06)
--- NOTE | 2022-12-06 22:50 | XRAY Report ---
PROCEDURE: Humerus RT INDICATIONS: shoulder inj TECHNIQUE: 4 views of the humerus were acquired. COMPARISON: None. FINDINGS: Bones: There is a mildly comminuted fracture of the right humeral head and neck. Associated mild imp action of the humeral shaft component demonstrated. There is also mild displacement of the great thor acic component by approximately 0.6 cm. Soft tissues: No suspicious soft tissue calcifications or masses. IMPRESSION: 1. Mildly comminuted fracture of the humeral head and neck. Reviewed by: Antoni Cunningham MD on 12/06/2022 10:48 PM PDT Approved by: Antnoi Cunningham MD on 12/06/2022 10:48 PM PDT Station ID: [id number]
== END 2022-12-06 22:21 | disposition home or self-care (01) ==
LOC: ED 20:27
DX: S42.201A Unspecified fracture of upper end of right humerus, initial encounter for closed fracture (principal); W19.XXXA Unspecified fall, initial encounter; I10 Essential (primary) hypertension; G30.9 Alzheimer's disease, unspecified; F02.80 Dementia in other diseases classified elsewhere, unspecified severity, without behavioral disturbance, psychotic disturbance, mood disturbance, and anxiety
CPT/HCPCS: 73060; 96374; 96375; 99283; 99284; J1170

== ENCOUNTER 2023-05-10 08:00 | Outpatient (CLI) | payer MEDICARE, OTHER ==
[2023-05-10 12:15] LABS: BILIRUBIN,URINE NEGATIVE (NEGATIVE); GLUCOSE, URINE (UA) NEGATIVE (NEGATIVE); KETONES,URINE (UA) NEGATIVE (NEGATIVE); LEUKOCYTE ESTERASE, URINE NEGATIVE (NEGATIVE); NITRITE,URINE NEGATIVE (NEGATIVE); OCCULT BLOOD,URINE NEGATIVE (NEGATIVE); PROTEIN,URINE NEGATIVE (NEGATIVE); UROBILINOGEN,URINE 0.2 (NORMAL) E.U./dL (NORMAL)
[2023-05-10 12:18] LABS: CLARITY,URINE CLEAR (CLEAR)
== END 2023-05-10 23:59 | disposition home or self-care (01) ==
LOC: LAB.N 08:00
PROVIDERS: ATTEND Nurse Practitioner Family
DX: N39.0 Urinary tract infection, site not specified (principal)
CPT/HCPCS: 81001; 81003; 87086; 87181

== ENCOUNTER 2023-05-10 19:19 | Outpatient (CLI) | payer MEDICARE, OTHER | END 2023-05-10 19:20 | disposition EMS.NT | LOC: EMS 19:19 | DX: Z03.89 Encounter for observation for other suspected diseases and conditions ruled out (principal) ==

== ENCOUNTER 2023-06-05 23:53 | Outpatient (CLI) | payer MEDICARE, OTHER | END 2023-06-05 23:59 | disposition EMS.NT | LOC: EMS 23:53 | DX: Z03.89 Encounter for observation for other suspected diseases and conditions ruled out (principal) ==

== ENCOUNTER 2023-06-19 17:48 | Outpatient (CLI) | payer MEDICARE, OTHER | END 2023-06-19 17:49 | disposition critical access hospital (66) | LOC: EMS 17:48 | DX: R29.6 Repeated falls (principal); R53.1 Weakness; R26.81 Unsteadiness on feet | CPT/HCPCS: A0425; A0429 ==

== ENCOUNTER 2023-06-19 18:39 | Emergency (ER) | payer MEDICARE, OTHER ==
--- NOTE | 2023-06-19 18:49 | ED Physician Documentation ---
PD HPI ALTERED MENTAL STATUS - Stated complaint Stated Complaint: WEAKNESS - History obtained from History obtained from: EMS - Additional information Additional information: 82-year-old woman with dementia presents from assisted living home with some increased confusion over usual and more frequent falls lately without injury. Specific concern was for UTI as she has a report of incontinence. Patient has no complaints. Patient unable to participate in history because of dementia. PD PAST MEDICAL HISTORY - Past Medical History Cardiovascular: Hypertension Respiratory: None Neuro: Alzhiemer's, Dementia Endocrine/Autoimmune: None GI: None MAINTENANCE CUSTODIAN: None : None HEENT: None Psych: None Musculoskeletal: Osteoarthritis Derm: Other (Basal cell carcinoma 2019) - Past Surgical History Past Surgical History: Yes General: Other (Tonsillectomy) /MAINTENANCE CUSTODIAN: section, Hysterectomy HEENT: Cataracts - Present Medications Home Medications: Ambulatory Orders Medication Instructions Recorded Confirmed Citalopram [CeleXA] 20 mg PO DAILY 06/19/23 06/19/23 Docusate Sodium 100Mg Capsule 100 mg PO BID 06/19/23 06/19/23 [Colace 100Mg Capsule] Mirtazapine [Remeron] 15 mg PO HS 06/19/23 06/19/23 OLANZapine [Zyprexa Zydis] 5 mg PO BID 06/19/23 06/19/23 Psyllium Husk [Metamucil] 0.52 gm PO DAILY 06/19/23 06/19/23 Senna [Senokot] 8.6 mg PO BID 06/19/23 06/19/23 - Allergies Allergies/Adverse Reactions: Allergies Allergy/AdvReac Type Severity Reaction Status Date / Time donepezil [From Aricept] Allergy Dizziness Verified 06/19/23 18:54 - Social History Does the pt smoke?: No Smoking Status: Never smoker Does the pt drink ETOH?: No Does the pt have substance abuse?: No - Immunizations Immunizations are current?: Yes - POLST Patient has POLST: No PD ED PE NORMAL - Vitals Vital signs reviewed: Yes - General General: Other (She is alert and oriented to person but not place time or events. She is cooperative) - HEENT HEENT: PERRL, EOMI - Neck Neck: Supple, no meningeal sign, No bony TTP - Cardiac Cardiac: RRR, No murmur - Respiratory Respiratory: No respiratory distress, Clear bilaterally - Abdomen Abdomen: Non tender - Back Back: No spinal TTP - Extremities Extremities: No deformity, No tenderness to palpate, Normal ROM s pain, Other (Seems to have good strength in all 4 extremities.) - Neuro Eye Opening: Spontaneous Motor: Obeys Commands Verbal: Confused GCS Score: 14 Results - Vitals Vitals: Vital Signs - 24 hr 06/19/23 18:47 Temperature 35.8 C L Heart Rate 68 Respiratory 18 Rate Blood Pressure 138/84 H O2 Saturation 99 Oxygen O2 Source Venturi mask - Labs Labs: Laboratory Tests 06/19/23 06/19/23 06/19/23 18:57 18:57 19:34 WBC 6.7 RBC 4.24 Hgb 12.4 Hct 38.9 MCV 91.7 MCH 29.2 MCHC 31.9 L RDW 13.0 Plt Count 188 MPV 10.4 Neut # (Auto) 4.5 Lymph # (Auto) 1.5 [place] # (Auto) 0.5 Eos # (Auto) 0.1 Baso # (Auto) 0.0 Absolute Nucleated RBC 0.00 Nucleated RBC % 0.0 Sodium 141 Potassium 4.0 Chloride 110 Carbon Dioxide 25 Anion Gap 6.0 BUN 29 H Creatinine 0.9 Estimated GFR (MDRD) 60 L Glucose 101 Calcium 9.5 Total Bilirubin 0.4 AST 15 ALT 22 Alkaline Phosphatase 76 Total Protein 6.1 L Albumin 3.9 Globulin 2.2 Albumin/Globulin Ratio 1.8 Urine Color YELLOW Urine Clarity CLEAR Urine pH 6.0 Ur Specific [place] 1.025 Urine Protein NEGATIVE Urine Glucose (UA) NEGATIVE Urine Ketones TRACE Urine Occult Blood TRACE-INTA Urine Nitrite NEGATIVE Urine Bilirubin NEGATIVE Urine Urobilinogen 0.2 (NORMAL) Ur Leukocyte Esterase NEGATIVE Ur Microscopic Review NOT INDICATED Urine Culture Comments NOT INDICATED - Rads (name of study) CT of the head was unremarkable. Relevant Findings:: Final report received, EMP independent interpretation of test PD Medical Decision Making - ED course Complexity details: d/w family (Had long discussion with daughterMary by phone and discussed diagnostics and workup done in the emergency department.) ED course: 82-year-old woman with dementia with somewhat of a recent decline and frequent falls. No clear injury. Basic labs, urinalysis, and head CT were unremarkable. Departure - Departure Disposition: 01 Home, Self Care Clinical Impression: Dementia, Frequent falls Condition: Stable Instructions: ED Dementia Caregiver Support Comments: Basic Labs, head CT and Urinalysis were unremarkable. Reasonable to try to keep her wheelchair bound or spiritism use of walker if able. Forms: PCP List
[2023-06-19 19:02] LABS: BASOPHILS % (AUTO) 0.6 %; EOSINOPHILS # (AUTO) 0.1 10^3/uL (0.0-0.7); EOSINOPHILS % (AUTO) 1.8 %; HCT - HEMATOCRIT 38.9 % (37.0-47.0); HGB - HEMOGLOBIN 12.4 g/dL (12.0-16.0); LYMPHOCYTES # (AUTO) 1.5 10^3/uL (1.5-3.5); LYMPHOCYTES % (AUTO) 22.5 %; MEAN CORPUSCULAR HEMOGLOBIN 29.2 pg (27.0-31.0); MEAN CORPUSCULAR HGB CONC 31.9 g/dL (32.0-36.0); MEAN CORPUSCULAR VOLUME 91.7 fL (81.0-99.0); MEAN PLATELET VOLUME 10.4 fL (7.9-10.8); MONOCYTES # (AUTO) 0.5 10^3/uL (0.0-1.0); MONOCYTES % (AUTO) 7.8 %; NEUTROPHILS # (AUTO) 4.5 10^3/uL (1.5-6.6); PLT - PLATELET COUNT 188 10^3/uL (130-450); RED BLOOD COUNT 4.24 10^6/uL (4.20-5.40); WHITE BLOOD COUNT 6.7 x10^3/uL (4.8-10.8)
[2023-06-19 19:19] LABS: ALBUMIN 3.9 g/dL (3.2-5.5); ALBUMIN/GLOBULIN RATIO 1.8 (1.0-2.2); BILIRUBIN,TOTAL 0.4 mg/dL (0.2-1.0); CALCIUM 9.5 mg/dL (8.5-10.3); CREATININE 0.9 mg/dL (0.6-1.3); TOTAL PROTEIN 6.1 g/dL (6.4-8.9)
[2023-06-19 19:39] LABS: BILIRUBIN,URINE NEGATIVE (NEGATIVE); GLUCOSE, URINE (UA) NEGATIVE (NEGATIVE); KETONES,URINE (UA) TRACE mg/dL (NEGATIVE); LEUKOCYTE ESTERASE, URINE NEGATIVE (NEGATIVE); NITRITE,URINE NEGATIVE (NEGATIVE); OCCULT BLOOD,URINE TRACE-INTA (NEGATIVE); PROTEIN,URINE NEGATIVE (NEGATIVE); UROBILINOGEN,URINE 0.2 (NORMAL) E.U./dL (NORMAL)
[2023-06-19 19:41] LABS: CLARITY,URINE CLEAR (CLEAR)
--- NOTE | 2023-06-19 20:14 | CT Report ---
PROCEDURE: Head WO INDICATIONS: ams TECHNIQUE: Noncontrast 4.5 mm thick angled axial sections acquired from the foramen magnum to the vertex. For r adiation dose reduction, the following was used: automated exposure control, adjustment of mA and/or kV according to patient size. COMPARISON: None. FINDINGS: Image quality: Diagnostic. CSF spaces: Basal cisterns are patent. No extra-axial fluid collections. Ventricles are normal in size and shape. Brain: No midline shift. No intracranial masses or hemorrhage. Fuller-white matter interface is norm al. Mild diffuse cerebral volume loss. Mild periventricular and subcortical white matter hypodensiti es most consistent with chronic microvascular ischemic changes. Skull and face: Calvarium and visualized facial bones are intact, without suspicious lesions. Bilat eral lens replacement. Sinuses: Visualized sinuses and mastoids are clear. IMPRESSION: No acute intracranial pathology. Reviewed by: Kayla Zamora MD on 06/19/2023 8:13 PM PST Approved by: Kayla Zamora MD on 06/19/2023 8:13 PM PST Station ID: [id number]
[2023-06-19 20:53] VITALS: BP 141/83; O2SAT 100
== END 2023-06-19 21:07 | disposition home or self-care (01) ==
LOC: EDUNIT# → ED 18:39
DX: G30.9 Alzheimer's disease, unspecified (principal); F02.80 Dementia in other diseases classified elsewhere, unspecified severity, without behavioral disturbance, psychotic disturbance, mood disturbance, and anxiety; R29.6 Repeated falls; I10 Essential (primary) hypertension; Z79.899 Other long term (current) drug therapy
CPT/HCPCS: 36415; 80053; 81001; 81003; 85025; 87086; 99283; 99284

== ENCOUNTER 2023-06-19 21:32 | Outpatient (CLI) | payer MEDICARE, OTHER | END 2023-06-19 23:59 | disposition home or self-care (01) | LOC: EMS 21:32 | PROVIDERS: ATTEND Emergency Medicine | DX: R41.0 Disorientation, unspecified (principal); F03.90 Unspecified dementia, unspecified severity, without behavioral disturbance, psychotic disturbance, mood disturbance, and anxiety; R53.1 Weakness | CPT/HCPCS: A0425; A0428 ==